=== PATIENT | male | born 1980 | race Caucasian/White ===

== ENCOUNTER 2020-09-16 22:27 | Emergency (ER) | payer SELFPAY ==
[~2020-09-16] VITALS: Ht 170.2 cm; Wt 91.0 kg
[2020-09-16 22:42] VITALS: BP 126/84
[2020-09-17] MEDS ORDERED: NAPR375T5 MT (00:37)
== END 2020-09-17 00:57 | disposition home or self-care (01) ==
LOC: ER 22:27
DX: M79.602 Pain in left arm (principal); V49.49XA Driver injured in collision with other motor vehicles in traffic accident, initial encounter; Y93.89 Activity, other specified; Y92.89 Other specified places as the place of occurrence of the external cause; Y99.8 Other external cause status
CPT/HCPCS: 73090; 99283